=== PATIENT | male | born 1935 | race Caucasian/White ===

== ENCOUNTER → 2017-09-09 | Outpatient (CLI) | payer OTHER ==
[~2017-09-09] MED LIST: COZ50 PO; FLO4 PO; FOL1 PO; LOP50 PO; MET2.5 PO; METOPROLOL TART25 M1 PO; PRI20 PO; SING10 PO; XARELTO10 M1 PO
== END | disposition home or self-care (01) ==
LOC: RD 09:58
DX: M54.2 Cervicalgia (principal)

== ENCOUNTER 2017-10-17 07:38 | Emergency (ER) | payer OTHER ==
[2017-10-17 08:46] VITALS: BP 123/69
== END 2017-10-17 08:46 | disposition home or self-care (01) ==
LOC: ED 07:38
DX: J40 Bronchitis, not specified as acute or chronic (principal); H10.9 Unspecified conjunctivitis; I10 Essential (primary) hypertension; E11.9 Type 2 diabetes mellitus without complications; M19.90 Unspecified osteoarthritis, unspecified site; Z88.0 Allergy status to penicillin; Z88.2 Allergy status to sulfonamides; Z79.899 Other long term (current) drug therapy

== ENCOUNTER 2018-04-28 18:48 | Emergency (ER) | payer OTHER ==
[~2018-04-28] VITALS: Ht 165.1 cm; Wt 73.0 kg
[2018-04-28 21:19] VITALS: BP 136/91
== END 2018-04-28 21:19 | disposition home or self-care (01) ==
LOC: ED 18:48
DX: M50.30 Other cervical disc degeneration, unspecified cervical region (principal); Z88.1 Allergy status to other antibiotic agents; Z88.2 Allergy status to sulfonamides
CPT/HCPCS: J1885

== ENCOUNTER 2018-06-09 03:43 | Inpatient (IN) | payer OTHER ==
[~2018-06-09] VITALS: Ht 165.1 cm; Wt 74.4 kg
[2018-06-09 03:50] VITALS: Ht 165.1 cm; Wt 74.4 kg
[2018-06-09 05:17] LABS: BASOPHIL % 0.7 % (0-2); PLATELET COUNT 334 x10^3mcL (130-400)
[2018-06-09 05:19] LABS: RED CELL DISTRIBUTION WIDTH 17.7 % (11.5-14.5)
[2018-06-09 05:33] LABS: ALKALINE PHOSPHATASE 115 U/L (46-116); ALT/SGPT 27 U/L (16-63); AST/SGOT 20 U/L (15-37); BILIRUBIN TOTAL 1.5 mg/dL (0.20-1.00); CALCIUM 7.5 mg/dL (8.5-10.1); CARBON DIOXIDE 26.2 mmol/L (21-32); CHLORIDE SERUM 95 mmol/L (98-107); CREATININE SERUM 0.8 mg/dL (0.7-1.3); GLUCOSE SERUM 114 mg/dL (74-106); SODIUM SERUM 130 mmol/L (136-145)
[2018-06-09 05:38] LABS: ALBUMIN 3.1 g/dL (3.4-5.0); TOTAL PROTEIN, SERUM 6.1 g/dL (6.4-8.2)
[2018-06-09 05:41] LABS: POTASSIUM SERUM 2.6 mmol/L (3.5-5.1)
[2018-06-09] MEDS ORDERED: TAMSULOSIN HYD0.4 M1 PO (05:57)
[2018-06-09] MEDS ORDERED: ACETAMINOPHEN-H1 TA2 PO (05:57)
[2018-06-09] MEDS ORDERED: XARELTO10 M1 (05:57)
[2018-06-09] MEDS ORDERED: MONTELUKAST SOD10 M1 PO (05:58)
[2018-06-09] MEDS ORDERED: METHOTREXATE2.5 M2 PO (05:58)
[2018-06-09] MEDS ORDERED: HYDROCHLOROTHIA25 MG PO (05:58)
[2018-06-09] MEDS ORDERED: GOOD SENSE OMEP20 MG PO (05:58)
[2018-06-09] MEDS ORDERED: PREDNISONE1 MG PO (06:18)
[2018-06-09] MEDS ORDERED: NOR5 PO (06:18)
[2018-06-09] MEDS ORDERED: ORENCIA50 MG/0.4 SQ (06:18)
[2018-06-09] MEDS ORDERED: SUPER B-50 COM1 EACH PO (06:19)
[2018-06-09] MEDS ORDERED: PHARMASSURE FO0.4 MG PO (06:20)
[2018-06-09] MEDS ORDERED: OSCD PO (06:20)
[2018-06-09 08:02] LABS: PHOSPHOROUS 3.5 mg/dL (2.5-4.9)
[2018-06-09 08:08] LABS: CHOLESTEROL/HDL RATIO 2.5
[2018-06-09 08:14] LABS: T3 TOTAL 1.22 ng/mL
[2018-06-09 08:34] LABS: FREE T4 1.38 ng/dL (0.76-1.46); FREE THYROXINE INDEX 3.1 ug/dL (1.4-4.5); T4(THYROXINE) 7.8 ug/dL (4.7-13.3)
[2018-06-09 08:38] LABS: microscopic required? NO
[2018-06-09 09:07] VITALS: BP 140/79
[2018-06-09 09:08] LABS: urine erythrocyte NEGATIVE (NEGATIVE)
[2018-06-09 13:11] VITALS: BP 109/72
[2018-06-09 14:23] LABS: CALCIUM 7.6 mg/dL (8.5-10.1); CARBON DIOXIDE 25.2 mmol/L (21-32); CHLORIDE SERUM 96 mmol/L (98-107); CREATININE SERUM 0.6 mg/dL (0.7-1.3); GLUCOSE SERUM 115 mg/dL (74-106); POTASSIUM SERUM 3.1 mmol/L (3.5-5.1); SODIUM SERUM 128 mmol/L (136-145)
[2018-06-09 17:14] VITALS: BP 123/70
[2018-06-09 20:33] VITALS: BP 144/68
[2018-06-10 06:04] VITALS: BP 109/71
[2018-06-10 06:22] LABS: BASOPHIL % 0.5 % (0-2); PLATELET COUNT 305 x10^3mcL (130-400)
[2018-06-10 06:38] LABS: RED CELL DISTRIBUTION WIDTH 16.9 % (11.5-14.5)
[2018-06-10 07:20] LABS: CALCIUM 7.4 mg/dL (8.5-10.1); CARBON DIOXIDE 22.9 mmol/L (21-32); CHLORIDE SERUM 100 mmol/L (98-107); CREATININE SERUM 0.6 mg/dL (0.7-1.3); GLUCOSE SERUM 90 mg/dL (74-106); POTASSIUM SERUM 3.5 mmol/L (3.5-5.1); SODIUM SERUM 132 mmol/L (136-145)
[2018-06-10 09:37] VITALS: BP 115/68
[2018-06-10 13:16] VITALS: BP 106/73
[2018-06-10 16:26] VITALS: BP 118/70
[2018-06-10 21:12] VITALS: BP 122/61
[2018-06-11 05:43] VITALS: BP 107/71
[2018-06-11 06:55] LABS: CALCIUM 7.4 mg/dL (8.5-10.1); CARBON DIOXIDE 23.2 mmol/L (21-32); CHLORIDE SERUM 97 mmol/L (98-107); CREATININE SERUM 0.7 mg/dL (0.7-1.3); GLUCOSE SERUM 107 mg/dL (74-106); SODIUM SERUM 131 mmol/L (136-145)
[2018-06-11 06:56] LABS: BASOPHIL % 0.5 % (0-2); PLATELET COUNT 295 x10^3mcL (130-400)
[2018-06-11 07:18] LABS: RED CELL DISTRIBUTION WIDTH 17.6 % (11.5-14.5)
[2018-06-11 10:35] VITALS: BP 104/70
[2018-06-11 14:03] VITALS: BP 101/66
[2018-06-11 18:26] VITALS: BP 105/68
[2018-06-11 21:44] VITALS: BP 124/73
[2018-06-12 05:51] VITALS: BP 124/72
[2018-06-12 06:02] LABS: BASOPHIL % 0.7 % (0-2); PLATELET COUNT 302 x10^3mcL (130-400)
[2018-06-12 06:19] LABS: CALCIUM 7.6 mg/dL (8.5-10.1); CARBON DIOXIDE 23.7 mmol/L (21-32); CHLORIDE SERUM 95 mmol/L (98-107); CREATININE SERUM 0.7 mg/dL (0.7-1.3); GLUCOSE SERUM 102 mg/dL (74-106); POTASSIUM SERUM 3.3 mmol/L (3.5-5.1); SODIUM SERUM 128 mmol/L (136-145)
[2018-06-12 06:21] LABS: RED CELL DISTRIBUTION WIDTH 17.2 % (11.5-14.5)
[2018-06-12 08:59] VITALS: BP 111/72
[2018-06-12 12:57] VITALS: BP 142/70
[2018-06-12] MEDS ORDERED: FLA500 PO (13:59)
[2018-06-12] MEDS ORDERED: LEVAQUIN750 MG PO (13:59)
[2018-06-12] MEDS ORDERED: LAC PO (14:00)
[2018-06-12 14:18] LABS: CALCIUM 7.5 mg/dL (8.5-10.1); CARBON DIOXIDE 23.5 mmol/L (21-32); CHLORIDE SERUM 91 mmol/L (98-107); CREATININE SERUM 0.7 mg/dL (0.7-1.3); GLUCOSE SERUM 139 mg/dL (74-106); POTASSIUM SERUM 3.5 mmol/L (3.5-5.1); SODIUM SERUM 125 mmol/L (136-145)
[2018-06-12 14:20] LABS: ALBUMIN 3.2 g/dL (3.4-5.0)
[2018-06-12 17:33] VITALS: BP 138/74
[2018-06-12 20:47] VITALS: BP 107/69
[2018-06-13 05:31] VITALS: BP 114/75
[2018-06-13 06:56] LABS: CALCIUM 7.3 mg/dL (8.5-10.1); CARBON DIOXIDE 21.9 mmol/L (21-32); CHLORIDE SERUM 93 mmol/L (98-107); CREATININE SERUM 0.7 mg/dL (0.7-1.3); GLUCOSE SERUM 98 mg/dL (74-106); POTASSIUM SERUM 3.3 mmol/L (3.5-5.1); SODIUM SERUM 125 mmol/L (136-145)
[2018-06-13 07:56] LABS: BASOPHIL % 0.4 % (0-2); PLATELET COUNT 325 x10^3mcL (130-400)
[2018-06-13 07:58] LABS: RED CELL DISTRIBUTION WIDTH 17.4 % (11.5-14.5)
[2018-06-13 09:55] VITALS: BP 124/79
[2018-06-13] MEDS ORDERED: FLA500 PO (13:07)
[2018-06-13] MEDS ORDERED: LEVAQUIN750 MG PO (13:07)
[2018-06-13 13:45] VITALS: BP 124/79
[2018-06-13 14:04] VITALS: BP 128/74
== END 2018-06-13 14:15 | disposition home or self-care (01) | DRG 392 ==
LOC: ED 03:43 → DU 07:08
PROVIDERS: Family Medicine; Internal Medicine
DX: K57.32 Diverticulitis of large intestine without perforation or abscess without bleeding (principal); E87.1 Hypo-osmolality and hyponatremia; E44.0 Moderate protein-calorie malnutrition; E87.6 Hypokalemia; E83.42 Hypomagnesemia; I48.91 Unspecified atrial fibrillation; I10 Essential (primary) hypertension; R73.03 Prediabetes; J45.909 Unspecified asthma, uncomplicated; M06.9 Rheumatoid arthritis, unspecified; Z68.25 Body mass index [BMI] 25.0-25.9, adult; Z87.891 Personal history of nicotine dependence; Z79.01 Long term (current) use of anticoagulants
CPT/HCPCS: 84439; J0744; J1956; J2270; J2405; J3475; J3480; J3490; J7030; J7040; J7512; J8610; Q0162

== ENCOUNTER 2018-06-19 14:13 | Inpatient (IN) | payer OTHER ==
[~2018-06-19] VITALS: Ht 165.1 cm; Wt 70.8 kg
[~2018-06-19 14:13] MED LIST changes: +ACETAMINOPHEN-H1 TA2 PO; +FLA500 PO; +GOOD SENSE OMEP20 MG PO; +HYDROCHLOROTHIA25 MG PO; +LAC PO; +LEVAQUIN750 MG PO; +METHOTREXATE2.5 M2 PO; +MONTELUKAST SOD10 M1 PO; +NOR5 PO; +ORENCIA50 MG/0.4 SQ; +OSCD PO; +PHARMASSURE FO0.4 MG PO; +PREDNISONE1 MG PO; +SUPER B-50 COM1 EACH PO; +TAMSULOSIN HYD0.4 M1 PO; +XARELTO10 M1
[2018-06-19 15:56] LABS: BASOPHIL % 0.5 % (0-2)
[2018-06-19 16:02] LABS: PLATELET COUNT 439 x10^3mcL (130-400); RED CELL DISTRIBUTION WIDTH 17.1 % (11.5-14.5)
[2018-06-19 16:12] LABS: ALKALINE PHOSPHATASE 79 U/L (46-116); ALT/SGPT 14 U/L (16-63); AST/SGOT 17 U/L (15-37); BILIRUBIN TOTAL 1.2 mg/dL (0.20-1.00); CALCIUM 7.3 mg/dL (8.5-10.1); CARBON DIOXIDE 26.7 mmol/L (21-32); CHLORIDE SERUM 82 mmol/L (98-107); CREATININE SERUM 0.6 mg/dL (0.7-1.3); GLUCOSE SERUM 121 mg/dL (74-106); HDL CHOLESTEROL 43 mg/dL (40-60); LIPASE 134 IU/L (73-393); PHOSPHOROUS 2.4 mg/dL (2.5-4.9); URIC ACID 2.8 mg/dL (3.5-7.2)
[2018-06-19 16:14] LABS: CHOLESTEROL 124 mg/dL (<200)
[2018-06-19 16:16] LABS: POTASSIUM SERUM 2.8 mmol/L (3.5-5.1); SODIUM SERUM 117 mmol/L (136-145)
[2018-06-19 17:29] LABS: microscopic required? YES; urine erythrocyte 2+ (NEGATIVE)
[2018-06-19 20:08] VITALS: BP 116/75
[2018-06-19 21:08] LABS: CALCIUM 7.2 mg/dL (8.5-10.1); CARBON DIOXIDE 21.7 mmol/L (21-32); CHLORIDE SERUM 88 mmol/L (98-107); CREATININE SERUM 0.6 mg/dL (0.7-1.3); GLUCOSE SERUM 108 mg/dL (74-106); POTASSIUM SERUM 3.1 mmol/L (3.5-5.1)
[2018-06-19 21:11] LABS: SODIUM SERUM 117 mmol/L (136-145)
[2018-06-20 06:08] VITALS: BP 119/75
[2018-06-20 06:33] LABS: CALCIUM 7.4 mg/dL (8.5-10.1); CARBON DIOXIDE 21.1 mmol/L (21-32); CHLORIDE SERUM 92 mmol/L (98-107); CREATININE SERUM 0.7 mg/dL (0.7-1.3); GLUCOSE SERUM 105 mg/dL (74-106); POTASSIUM SERUM 3.1 mmol/L (3.5-5.1)
[2018-06-20 07:17] LABS: SODIUM SERUM 120 mmol/L (136-145)
[2018-06-20 09:21] VITALS: BP 99/68
[2018-06-20 10:51] LABS: CALCIUM 6.5 mg/dL (8.5-10.1); CARBON DIOXIDE 21.8 mmol/L (21-32); CHLORIDE SERUM 93 mmol/L (98-107); CREATININE SERUM 0.6 mg/dL (0.7-1.3); GLUCOSE SERUM 114 mg/dL (74-106)
[2018-06-20 10:53] LABS: POTASSIUM SERUM 2.9 mmol/L (3.5-5.1); SODIUM SERUM 123 mmol/L (136-145)
[2018-06-20 13:16] VITALS: BP 105/57
[2018-06-20 16:41] LABS: CALCIUM 7.3 mg/dL (8.5-10.1); CARBON DIOXIDE 21.8 mmol/L (21-32); CHLORIDE SERUM 96 mmol/L (98-107); CREATININE SERUM 0.8 mg/dL (0.7-1.3); GLUCOSE SERUM 121 mg/dL (74-106); POTASSIUM SERUM 3.6 mmol/L (3.5-5.1)
[2018-06-20 16:50] LABS: SODIUM SERUM 124 mmol/L (136-145)
[2018-06-20 18:18] VITALS: BP 105/66
[2018-06-20 22:01] VITALS: BP 111/61
[2018-06-21 05:15] VITALS: BP 103/62
[2018-06-21 07:05] LABS: BASOPHIL % 0.6 % (0-2); PLATELET COUNT 374 x10^3mcL (130-400)
[2018-06-21 07:08] LABS: RED CELL DISTRIBUTION WIDTH 18.2 % (11.5-14.5)
[2018-06-21 07:12] LABS: CALCIUM 6.9 mg/dL (8.5-10.1); CHLORIDE SERUM 99 mmol/L (98-107); CREATININE SERUM 0.6 mg/dL (0.7-1.3); GLUCOSE SERUM 93 mg/dL (74-106); POTASSIUM SERUM 3.7 mmol/L (3.5-5.1); SODIUM SERUM 129 mmol/L (136-145)
[2018-06-21 09:46] VITALS: BP 117/75
[2018-06-21 12:47] VITALS: BP 117/75
== END 2018-06-21 15:32 | disposition home or self-care (01) | DRG 392 ==
LOC: ED 14:13 → DU 18:09
PROVIDERS: Emergency Medicine; Internal Medicine; Internal Medicine Nephrology
DX: K57.32 Diverticulitis of large intestine without perforation or abscess without bleeding (principal); E87.1 Hypo-osmolality and hyponatremia; E87.6 Hypokalemia; E11.9 Type 2 diabetes mellitus without complications; K21.9 Gastro-esophageal reflux disease without esophagitis; I10 Essential (primary) hypertension; M06.9 Rheumatoid arthritis, unspecified; I25.10 Atherosclerotic heart disease of native coronary artery without angina pectoris; Z87.891 Personal history of nicotine dependence; Z79.52 Long term (current) use of systemic steroids; Z79.891 Long term (current) use of opiate analgesic
CPT/HCPCS: 83880; J1956; J2405; J3480; J3490; J7030; J7512; Q0092

== ENCOUNTER 2019-05-21 11:42 | Emergency (ER) | payer OTHER, MEDICAID ==
[~2019-05-21] VITALS: Ht 165.1 cm; Wt 73.5 kg
[2019-05-21 11:46] VITALS: Ht 165.1 cm; Wt 73.5 kg
[2019-05-21 12:18] LABS: BASOPHIL % 0.6 % (0-2); PLATELET COUNT 329 x10^3mcL (130-400)
[2019-05-21 12:19] LABS: RED CELL DISTRIBUTION WIDTH 18.3 % (11.5-14.5)
[2019-05-21 12:39] LABS: ALKALINE PHOSPHATASE 115 U/L (46-116); ALT/SGPT 22 U/L (16-63); AST/SGOT 17 U/L (15-37); CALCIUM 8.6 mg/dL (8.5-10.1); CARBON DIOXIDE 23.6 mmol/L (21-32); CHLORIDE SERUM 105 mmol/L (98-107); CREATININE SERUM 0.9 mg/dL (0.7-1.3); GLUCOSE SERUM 162 mg/dL (74-106); SODIUM SERUM 140 mmol/L (136-145); TOTAL PROTEIN, SERUM 6.2 g/dL (6.4-8.2)
[2019-05-21 13:45] VITALS: BP 128/73
== END 2019-05-21 13:45 | disposition home or self-care (01) ==
LOC: ED 11:42
PROVIDERS: Emergency Medicine
DX: M13.832 Other specified arthritis, left wrist (principal); R07.89 Other chest pain; I10 Essential (primary) hypertension; E11.9 Type 2 diabetes mellitus without complications; I48.91 Unspecified atrial fibrillation; Z88.0 Allergy status to penicillin; Z88.2 Allergy status to sulfonamides
CPT/HCPCS: A4570; J2270; J2405; Q0092